=== PATIENT | female | born 1960 | race Two or more races ===

== ENCOUNTER 2016-11-26 09:43 | Day surgery (SDC) | payer OTHER ==
[2016-11-25 13:04] VITALS: BMI 27.3
[2016-11-26] VITALS (12 sets, daily range): BP systolic 100–119; BP diastolic 54–66; PULSE 58–67; RESP 15–19; Ht 160 cm; Wt 70.0 kg
[~2016-11-26] VITALS: Ht 160 cm; Wt 70.0 kg
[~2016-11-26 09:43] MED LIST: CEFAZOLIN 1 GM INJ ONE; CEFAZOLIN 2 GM/50 ML (PMX) 50 ML IVPB ONE; NO DAILY MEDS; SOD CHLORIDE 0.9% 1,000 ML IV SCH
[2016-11-26] MEDS ORDERED: SOD CHLORIDE 0.9% 1,000 ML IV ONE (11:00)
[2016-11-26] MEDS ORDERED: CEFAZOLIN 2 GM/50 ML (PMX) 50 ML IVPB ONE (11:00)
--- NOTE | 2016-11-26 11:03 | RADRPT ---
PROCEDURE: Chest Radiograph. CLINICAL INDICATION: Preop. Left arm mass. TECHNIQUE: Single frontal chest radiograph. COMPARISON: None available FINDINGS: The cardiomediastinal silhouette is within normal limits. No infiltrate or effusion is seen. Th e bones are intact. IMPRESSION: 1. Unremarkable chest radiograph. RPTAT: KK .Darnell Ibanez MD, MD Date Time Electronically viewed and signed by .Darnell Ibanez MD, on 11/26/2016 11:03 .B/
[2016-11-26] MEDS ORDERED: BUPIVACAINE 0.25% (MPF) 30 ML INJ ONE (11:34)
[2016-11-26] MEDS ORDERED: MIDAZOLAM 1 MG/ML 2 ML INJ ONE (11:49)
[2016-11-26] MEDS ORDERED: FENTAnyl 50 MCG/ML VIAL ONE (11:49)
[2016-11-26] MEDS ORDERED: LIDOCAINE 2% (MDV) 20 ML INJ ONE (12:04)
[2016-11-26] MEDS ORDERED: LIDOCAINE 2% (SDV) 5 ML INJ ONE (12:18)
[2016-11-26] MEDS ORDERED: PROPOFOL 20 ML ONE (12:18)
[2016-11-26] MEDS ORDERED: FENTAnyl 50 MCG/ML VIAL IV PRN (12:30)
[2016-11-26] MEDS ORDERED: ONDANSETRON 4 MG INJ IV PRN (12:30)
[2016-11-26] MEDS ORDERED: MEPERIDINE 25 MG INJ IV PRN (12:30)
[2016-11-26] MEDS ORDERED: ACETAMINOPHEN 325 MG TAB PO ONE (12:30)
[2016-11-26] MEDS ORDERED: DIPHENHYDRAMINE 50 MG INJ IV PRN (12:30)
--- NOTE | 2016-11-26 12:44 | OPR ---
DATE OF OPERATION: 11/26/2016 INDICATION: This is a 56-year-old female with a left arm mass. She requests surgical excision. Ri sks, alternatives, benefits, and personnel were discussed with the patient. The patient expressed u nderstanding and consents to the operation. PREOPERATIVE DIAGNOSIS: Left arm mass. POSTOPERATIVE DIAGNOSIS: Left arm mass. OPERATION PERFORMED: 1. Excision of left arm mass with 2 cm size incision and 2 cm size mass. 2. Localized adjacent tissue transfer with the use of skin flaps. SURGEON: Justina Godinez MD SPECIMEN: Left arm mass. COMPLICATIONS: None. ANESTHESIA: MAC. DESCRIPTION OF PROCEDURE: The patient was taken to the OR, prepped and draped in the usual sterile fashion. Surgical timeout was performed. IV antibiotics were given. Left arm mass was identified and infiltrated with local anesthesia. A transverse incision is made with a 15 blade. Dissection c autery was carried down to the mass and circumferentially excised. There was good hemostasis. Due to the tissue defect, localized adjacent tissue transfer with the use of skin flaps was performed. Multilayer closure with interrupted 3-0 Vicryl and skin darien. Dry dressings were applied. Dictated By: JUSTINA ESTRADA/YOVANI Conf#: [id number] DID#: [id number]
--- NOTE | 2016-11-26 16:01 | RADRPT ---
Vent Rate: 57 bpm RR Interval: 0 msec WI Interval: 186 msec QRS Duration: 84 msec QT Interval: 434 msec QTC Interval: 422 msec P-R-T Whitney: 69 - 78 - 50 degrees Sinus bradycardia Otherwise normal ECG Electronically Signed By: German Guido [id number]
== END 2016-11-26 17:20 | disposition home or self-care (01) ==
LOC: SDS 09:43
PROVIDERS: ATTEND Surgery
DX: D17.22 Benign lipomatous neoplasm of skin and subcutaneous tissue of left arm (principal)
CPT/HCPCS: 14020; 71010; 93005; J0690; J2250; J3010